=== PATIENT | male | born 1950 ===

== ENCOUNTER 2017-03-09 15:20 | Emergency (ER) | payer MEDICARE, OTHER ==
[2017-03-09 15:20] VITALS: BMI 32.6
[2017-03-09 15:29] VITALS: BP 121/87; PULSE 102; RESP 20; TEMP 97.3; O2SAT 98
--- NOTE | 2017-03-09 16:11 | C.PDOC ---
History Of Present Illness 66 year old male who presents to the ER after being exposed to poison nedra 2 weeks ago. Patient reports he the rash and pruritus has not improved. Denies pain, fever, chills, or difficulty swallowing. Time Seen by Provider: 03/09/17 15:29 Chief Complaint (Nursing): Abnormal Skin Integrity History Per: Patient History/Exam Limitations: no limitations Onset/Duration Of Symptoms: Days Current Symptoms Are (Timing): Still Present Location Of Injury: Right: Leg, Left: Leg, Anterior: Leg, Posterior: Leg Quality Of Symptoms: Itching Recent travel outside of the [place]: No Past Medical History Reviewed: Historical Data, Nursing Documentation, Vital Signs Vital Signs: Last Vital Signs Temp 97.3 F L 03/09/17 15:28 Pulse 102 H 03/09/17 15:28 Resp 20 03/09/17 15:28 BP 121/87 03/09/17 15:28 Pulse Ox 98 03/09/17 16:16 - Medical History PMH: Asthma, HTN Surgical History: No Surg Hx Family History: States: Unknown Family Hx - Social History Hx Tobacco Use: Yes Hx Alcohol Use: Yes Hx Substance Use: No Review Of Systems Constitutional: Negative for: Fever, Chills ENT: Negative for: Mouth Swelling, Throat Swelling Skin: Positive for: Rash Neurological: Negative for: Weakness, Numbness Physical Exam - Physical Exam Appears: Non-toxic Skin: Warm, Dry, Rash (Erythema and vesicles with no signs of infection to bilateral legs) Head: Atraumatic, Normacephalic Oral Mucosa: Moist Respiratory: Normal Breath Sounds, No Stridor, No Wheezing Extremity: Normal ROM (x4), No Tenderness, No Swelling Neurological/Psych: Oriented x3, Normal Speech, Normal Cognition Gait: Steady ED Course And Treatment O2 Sat by Pulse Oximetry: 98 (Room air) Pulse Ox Interpretation: Normal Progress Note: Atarax, pepcid, and prednisone administered. Disposition - Disposition Disposition: HOME/ ROUTINE Disposition Time: 16:42 Condition: STABLE Additional Instructions: Follow up with PMD within 1-2 days within 1-2 days. Return to ED if feel worse. Prescriptions: hydrOXYzine HCl [Atarax] 25 mg PO Q6H #30 tab Methylprednisolone [Medrol] 4 mg PO DAILY #42 tab Famotidine [Pepcid] 20 mg PO BID #20 tab Triamcinolone 0.25% [Triamcinolone Acetonide] 1 appl TP BID #60 g Instructions: Poison Ned[place] (ED) Forms: [facility] (Maltese) Print Language: CITIZEN [place] - Clinical Impression Clinical Impression: Poison nedra dermatitis - Scribe Statement The provider has reviewed the documentation as recorded by the Scribe Fabrice Herrera All medical record entries made by the [place] were at my direction and personally dictated by me. I have reviewed the chart and agree that the record accurately reflects my personal performance of the history, physical exam, medical decision making, and the department course for this patient. I have also personally directed, reviewed, and agree with the discharge instructions and disposition.
== END 2017-03-09 17:03 | disposition home or self-care (01) ==
LOC: C.ER 15:20
DX: L23.7 Allergic contact dermatitis due to plants, except food (principal)